=== PATIENT | female | born 1975 | race Caucasian/White ===

== ENCOUNTER 2016-10-20 08:08 | Emergency (ER) | payer OTHER, MEDICARE ==
[~2016-10-20] VITALS: Ht 165.1 cm; Wt 68.0 kg
[~2016-10-20 08:08] MED LIST: DICL75 PO; JUNETAB PO; LISD20CA PO
[2016-10-20 08:17] VITALS: BP 117/91; PULSE 89; RESP 16; TEMP 98.4; O2SAT 96
[2016-10-20] MEDS ORDERED: LISD1CAP PO (08:53)
[2016-10-20] MEDS ORDERED: AMPH1TAB29 PO (08:53)
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
[2016-10-20] MEDS ORDERED: oxyCODONE/ACETAMINOPHEN 5 MG/325 MG TAB PO ONE (10:15)
[2016-10-20] MEDS ORDERED: IBUPROFEN 600 MG TAB PO ONE (10:15)
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
[2016-10-20] MEDS ORDERED: IBUP-232 PO (10:24)
[2016-10-20] MEDS ORDERED: TRAM50TA PO (10:24)
[2016-10-20] MEDS ORDERED: MEDR4PAK PO (10:26)
[2016-10-20 10:31] LABS: BLOOD, URINE SMALL (NEG); GLUCOSE,URINE NEG (NEG); KETONE, URINE NEG (NEG)
[2016-10-20 10:32] LABS: METHOD OF COLLECTION CLEAN CATCH; NITRITE,URINE POS (NEG); URINE COLOR YELLOW (YELLW/STRAW)
[2016-10-20 10:36] LABS: BACTERIA, URINE MANY /hpf; COMMENT (UR) CULTURE INDICATED; CULTURE IF INDICATED CULTURE INDICATED; RBC, URINE 0-3 /hpf (0-3)
[2016-10-20 10:37] LABS: SQUAMOUS EPITHELIAL CELL URINE 0-5 /hpf (0-5)
[2016-10-20] MEDS ORDERED: MACR100C2 PO (10:39)
[2016-10-20] MEDS ORDERED: NITROFURANTOIN MONOHYD MACROCR 100 MG CAP PO ONE (10:45)
[2016-10-20 10:50] VITALS: BP 122/67
== END 2016-10-20 11:04 | disposition home or self-care (01) ==
LOC: PHED 08:08
DX: S16.1XXA Strain of muscle, fascia and tendon at neck level, initial encounter (principal); S43.401A Unspecified sprain of right shoulder joint, initial encounter; N39.0 Urinary tract infection, site not specified; M25.551 Pain in right hip; M25.552 Pain in left hip; B96.29 Other Escherichia coli [E. coli] as the cause of diseases classified elsewhere; F90.9 Attention-deficit hyperactivity disorder, unspecified type; J45.909 Unspecified asthma, uncomplicated; F41.8 Other specified anxiety disorders
CPT/HCPCS: 71250; 72125; 73030; 73502; 81001; 84703; 87077; 87086; 87186

== ENCOUNTER 2017-04-18 05:12 | Emergency (ER) | payer MEDICARE, OTHER ==
[~2017-04-18 05:12] MED LIST changes: +AMPH1TAB29 PO; -DICL75 PO; +IBUP-232 PO; -JUNETAB PO; +LISD1CAP PO; -LISD20CA PO; +MACR100C2 PO; +MEDR4PAK PO; +TRAM50TA PO
[2017-04-18 05:13] VITALS: BP 117/70; PULSE 78; RESP 18; TEMP 97.9; O2SAT 98
[2017-04-18] MEDS ORDERED: ADDE10 PO (05:35)
[2017-04-18] MEDS ORDERED: VYVA30CA5 PO (05:35)
[2017-04-18] MEDS ORDERED: SODIUM CHLOR 0.9% 1000 ML INJ 1,000 ML IV ONE (05:45)
[2017-04-18] MEDS ORDERED: HYDR-3583 PO (05:45)
[2017-04-18] MEDS ORDERED: ONDANSETRON HCL 4 MG/2 ML VIAL IV ONE (05:45)
[2017-04-18] MEDS ORDERED: TOPI1TAB97 PO (05:45)
[2017-04-18] MEDS ORDERED: KETOROLAC TROMETHAMINE 30 MG/ML (IVP) VIAL IV PUSH ONE (05:45)
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
[2017-04-18 06:26] LABS: AUTOMATED NEUTROPHIL # 6.8 TH/MM3 (1.8-7.7); BASOPHIL # 0.1 TH/MM3 (0-0.2); BASOPHIL % 0.7 % (0.0-2.0); EOSINOPHIL # 0.1 TH/MM3 (0-0.4); EOSINOPHIL % 0.9 % (0.0-4.0); HEMATOCRIT 45.6 % (35.0-46.0); HEMO FLAGS DIFF FINAL; LYMPH % 24.2 % (9.0-44.0); LYMPHOCYTE # 2.4 TH/MM3 (1.0-4.8); MEAN CELL VOLUME 85.1 FL (80.0-100.0); MEAN CORPUSCULAR HEMOGLOBIN 28.7 PG (27.0-34.0); MEAN CORPUSCULAR HGB CONC 33.7 % (32.0-36.0); MONO % 6.1 % (0.0-8.0); NEUT % 68.1 % (16.0-70.0); PLATELET COUNT 365 TH/MM3 (150-450); RED BLOOD COUNT 5.36 MIL/MM3 (4.00-5.30); RED CELL DISTRIBUTION WIDTH 16.8 % (11.6-17.2)
[2017-04-18 06:50] LABS: ALKALINE PHOSPHATASE 67 U/L (45-117); TOTAL BILIRUBIN ADULT 0.5 MG/DL (0.2-1.0)
[2017-04-18 07:21] LABS: ALT (GPT) 47 U/L (10-53); ANION GAP 6 MEQ/L (5-15); AST (GOT) 19 U/L (15-37); BICARBONATE 25.3 MEQ/L (21.0-32.0); BLOOD UREA NITROGEN 12 MG/DL (7-18); CHLORIDE 109 MEQ/L (98-107); GLOMERULAR FILTRATION RATE 71 ML/MIN (>89); MAGNESIUM 2.2 MG/DL (1.5-2.5); SODIUM (NA) 140 MEQ/L (136-145)
[2017-04-18 07:22] LABS: ALCOHOL LESS THAN 3 MG/DL (0-5); POTASSIUM 4.9 MEQ/L (3.5-5.1)
[2017-04-18] MEDS ORDERED: ZOFR4TAB3 SL (07:30)
[2017-04-18] MEDS ORDERED: SODIUM CHLORID 0.9% 500 ML INJ 500 ML IV ONE (07:45)
[2017-04-18 07:48] LABS: BACTERIA, URINE MANY /hpf; BLOOD, URINE TRACE (NEG); COMMENT (UR) CULTURE INDICATED; CULTURE IF INDICATED CULTURE INDICATED; GLUCOSE,URINE NEG (NEG); KETONE, URINE NEG (NEG); MUCUS URINE FEW /lpf (OCC); NITRITE,URINE POS (NEG); SQUAMOUS EPITHELIAL CELL URINE 4 /hpf (0-5); TRANSITIONAL EPI CELLS, URINE 1 /hpf; URINE COLOR YELLOW (YELLW/STRAW)
[2017-04-18] MEDS ORDERED: MACR100C2 PO (08:00)
[2017-04-18 08:45] VITALS: BP 101/68; PULSE 67; RESP 18; O2SAT 100
== END 2017-04-18 09:51 | disposition home or self-care (01) ==
LOC: NEPC 05:12
DX: E86.0 Dehydration (principal); F11.23 Opioid dependence with withdrawal; G89.29 Other chronic pain; N39.0 Urinary tract infection, site not specified; B96.20 Unspecified Escherichia coli [E. coli] as the cause of diseases classified elsewhere; Z72.0 Tobacco use
CPT/HCPCS: 80053; 80307; 81001; 83690; 83735; 84703; 85025; 87086; 96361; 96374; 96375; 99284; J1885; J2405; J7030; J7040

== ENCOUNTER 2017-08-28 20:14 | Emergency (ER) | payer OTHER, MEDICARE ==
[~2017-08-28] VITALS: Ht 165.1 cm; Wt 56.8 kg
[~2017-08-28 20:14] MED LIST changes: +ADDE10 PO; -AMPH1TAB29 PO; +HYDR-3583 PO; -IBUP-232 PO; -LISD1CAP PO; +LISD30 PO; -MEDR4PAK PO; +TOPI25TA7 PO; -TRAM50TA PO; +ZOFR4TAB3 SL
[2017-08-28 20:25] VITALS: BP 141/93; PULSE 90; RESP 16; TEMP 98.2; O2SAT 99
[2017-08-28] MEDS ORDERED: ROBA500T PO (20:26)
[2017-08-28] MEDS ORDERED: DICL75TA PO (20:26)
[2017-08-28] MEDS ORDERED: CYCLOBENZAPRINE HCL 10 MG TAB PO ONE (20:30)
[2017-08-28] MEDS ORDERED: NAPROXEN 500 MG TAB PO ONE (20:30)
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
== END 2017-08-28 21:00 | disposition home or self-care (01) ==
LOC: NEPD 20:14
DX: M54.9 Dorsalgia, unspecified (principal); F90.9 Attention-deficit hyperactivity disorder, unspecified type; J45.909 Unspecified asthma, uncomplicated; F31.9 Bipolar disorder, unspecified; F41.9 Anxiety disorder, unspecified; F17.290 Nicotine dependence, other tobacco product, uncomplicated; V43.52XA Car driver injured in collision with other type car in traffic accident, initial encounter; Z79.899 Other long term (current) drug therapy
CPT/HCPCS: 99284

== ENCOUNTER 2017-09-12 15:59 | Emergency (ER) | payer MEDICARE, OTHER ==
[~2017-09-12] VITALS: Ht 160 cm; Wt 57.3 kg
[~2017-09-12 15:59] MED LIST changes: +DICL75TA PO; +ROBA500T PO
[2017-09-12 16:01] VITALS: BP 152/71; PULSE 88; RESP 18; TEMP 97.6; O2SAT 100
[2017-09-12] MEDS ORDERED: LORazepam 2 MG/ML VIAL IM ONE (16:45)
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
[2017-09-12 18:34] VITALS: BP 123/72; PULSE 88; RESP 18; O2SAT 98
[2017-09-12 18:36] LABS: AUTOMATED NEUTROPHIL # 4.2 TH/MM3 (1.8-7.7); BASOPHIL % 0.3 % (0.0-2.0); EOSINOPHIL % 0.2 % (0.0-4.0); HEMATOCRIT 38.7 % (35.0-46.0); HEMOGLOBIN 13.2 GM/DL (11.6-15.3); LYMPH % 23.8 % (9.0-44.0); LYMPHOCYTE # 1.5 TH/MM3 (1.0-4.8); MEAN CELL VOLUME 83.5 FL (80.0-100.0); MEAN CORPUSCULAR HEMOGLOBIN 28.5 PG (27.0-34.0); MEAN CORPUSCULAR HGB CONC 34.2 % (32.0-36.0); MEAN PLATELET VOLUME 5.2 FL (7.0-11.0); MONO % 8.8 % (0.0-8.0); MONOCYTE # 0.5 TH/MM3 (0-0.9); NEUT % 66.9 % (16.0-70.0); PLATELET COUNT 435 TH/MM3 (150-450); RED BLOOD COUNT 4.63 MIL/MM3 (4.00-5.30); RED CELL DISTRIBUTION WIDTH 12.2 % (11.6-17.2); WHITE BLOOD COUNT 6.2 TH/MM3 (4.0-11.0)
[2017-09-12 18:44] LABS: CHLORIDE 105 MEQ/L (98-107); SODIUM (NA) 138 MEQ/L (136-145)
[2017-09-12] MEDS ORDERED: LORazepam 2 MG/ML VIAL IV PUSH ONE (18:45)
[2017-09-12 18:48] LABS: ALBUMIN 3.7 GM/DL (3.4-5.0); CALCIUM 8.7 MG/DL (8.5-10.1)
[2017-09-12 18:49] LABS: BICARBONATE 29.3 MEQ/L (21.0-32.0); BLOOD UREA NITROGEN 9 MG/DL (7-18); GLUCOSE,RANDOM 94 MG/DL (74-106)
[2017-09-12 18:51] LABS: ALT (GPT) 39 U/L (10-53); AST (GOT) 11 U/L (15-37)
[2017-09-12 18:52] LABS: CREATININE 0.64 MG/DL (0.50-1.00); GLOMERULAR FILTRATION RATE 103 ML/MIN (>89)
[2017-09-12 18:53] LABS: TOTAL BILIRUBIN ADULT 0.5 MG/DL (0.2-1.0); TOTAL PROTEIN 7.7 GM/DL (6.4-8.2)
[2017-09-12 18:54] LABS: ALKALINE PHOSPHATASE 77 U/L (45-117)
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
[2017-09-12 21:51] VITALS: BP 113/72
[2017-09-12] MEDS ORDERED: ALPRAZolam 0.5 MG TAB PO ONE (23:15)
[2017-09-13 01:57] VITALS: BP 96/54; PULSE 70; RESP 17; O2SAT 98
[2017-09-13 06:33] VITALS: BP 96/56; PULSE 73; RESP 16; O2SAT 99
--- NOTE | 2017-09-13 12:18 | PD.PSY.CON ---
Provisional Diagnosis Admission Date Cornelius I. Substance induced mood disorder, amphetamines and benzodiazepines use disorder, several reported bipolar and borderline personality disorder Cornelius II. Borderline personality disorder Cornelius III. No medical history History of Present Illness Service Psychiatry Consult Requested By ER Reason for Consult Medication refill Primary Care Physician No Primary Care Physician HPI The patient is a 41-year-old woman, domiciled alone, single, on SSI, with self-reported psychiatric history of bipolar disorder, anxiety, panic attacks, borderline personality disorder, 1 previous psychiatric hospitalizations, no previous suicidal attempts, she is not in any medication at this moment, medical history of chronic neck pain for which she has seen pain management, presents to the ER today because she states that she has been having verbal arguments with her mother, states that her mother had told her to leave the house, and she is very anxious and having an anxiety attack. She states that she has had history of anxiety attacks in the past. She denies any homicidal or suicidal ideation. She states that she just is very upset about everything. In addition, I have asked if she has a safe place to go, feels safe at home. She states that she has her own home. She denies any safety issues at home. Patient was Camacho acted by ER team due to disorganized behavior. Chart was reviewed. On psychiatric evaluation today the patient is calm, cooperative, denies anxiety at this moment. He says that yesterday she had used alcohol, amphetamines "was a little crazy and very anxious". At the moment the patient denies suicidal and homicidal ideation, she denies visual and auditory hallucinations. Patient would like to recommended with psychiatry to restart psychotropics without word useful in the past. She says that she would love to restart Xanax and medications for "my ADHD". She reported that she has been using crystal meth and alcohol occasionally. Review of Systems Constitutional: DENIES: Diaphoretic episodes, Fatigue, Fever, Weight gain, Weight loss, Chills, Dizziness, Change in appetite, Night Sweats Endocrine: DENIES: Abnorml menstrual pattern, Heat/cold intolerance, Polydipsia , Polyuria, Polyphagia Eyes: DENIES: Blurred vision, Diplopia, Eye inflammation, Eye pain, Vision loss , Photosensitivity, Double Vision Ears, nose, mouth, throat: DENIES: Tinnitus, Hearing loss, Vertigo, Nasal discharge, Oral lesions, Throat pain, Hoarseness, Ear Pain, Running Nose, Epistaxis, Sinus Pain, Toothache, Odynophagia Respiratory: DENIES: Apneas, Cough, Snoring, Wheezing, Hemoptysis, Sputum production, Shortness of breath Cardiovascular: DENIES: Chest pain, Palpitations, Syncope, Dyspnea on Exertion , PND, Lower Extremity Edema, Orthopnea, Claudication Gastrointestinal: DENIES: Abdominal pain, Black stools, Bloody stools, Constipation, Diarrhea, Nausea, Vomiting, Difficulty Swallowing, Anorexia Genitourinary: DENIES: Abnormal vaginal bleeding, Dysmenorrhea, Dyspareunia, Sexual dysfunction, Urinary frequency, Urinary incontinence, Urgency, Hematuria , Dysuria, Nocturia, Vaginal discharge Musculoskeletal: DENIES: Joint pain, Muscle aches, Stiffness, Joint Swelling, Back pain, Neck pain Integumentary: DENIES: Abnormal pigmentation, Pruritus, Rash, Nail changes, Breast masses, Breast skin changes, Nipple discharge Hematologic/lymphatic: DENIES: Bruising, Lymphadenopathy Immunologic/allergic: DENIES: Eczema, Urticaria Neurologic: DENIES: Abnormal gait, Headache, Localized weakness, Paresthesias, Seizures, Speech Problems, Tremor, Poor Balance Psychiatric: DENIES: Anxiety, Confusion, Mood changes, Depression, Hallucinations, Agitation, Suicidal Ideation, Homicidal Ideation, Delusions Past Family Social History Coded Allergies: No Known Allergies (Verified Adverse Reaction, Unknown, 09/12/17) Discontinued Reported Medications Hydrocodone-Acetaminophen (Hydrocodone-Acetaminophen) 10-325 mg Tab, 1 TAB PO TID Y for PAIN, #30 TAB 0 Refills 04/18/17 Topiramate (Topiramate) 25 Mg Tab, 25 MG PO BID for Control Seizures, #60 TAB 0 Refills 04/18/17 Lisdexamfetamine (Vyvanse) 30 Mg Cap, 30 MG PO DAILY, #30 CAP 0 Refills 04/18/17 Amphetamine-Dextroamphetamine (Adderall) 10 Mg Tab, 10 MG PO DAILY for Hyperactivity Control, #30 TAB 0 Refills Avoid late evening doses. Space doses at least 4 to 6 hours if more than once/day dosing. 04/18/17 Discontinued Scripts Methocarbamol (Robaxin) 500 Mg Tab, 500 MG PO QID for Muscle Spasm for 7 Days, TAB 0 Refills Prov:Baldo Mo MD 08/28/[address] (Diclofenac Sodium DR) 75 Mg Tabdr, 75 MG PO BID, #20 TAB 0 Refills Prov:Baldo Mo MD 08/28/17 Nitrofurantoin Monohydrate Macrocrystals (Macrobid) 100 Mg Capsule, 100 MG PO BID for Infection, #20 CAP 0 Refills Prov:Elgin Pope MD 04/18/17 Ondansetron Odt (Zofran Odt) 4 Mg Tab, 4 MG SL Q6HR Y for Nausea/Vomiting, #7 TAB 0 Refills Prov:Alanna Savage MD 04/18/17 Family Psych History Mother is bipolar Social History Patient was born and raised in [place], she doesn't Given alone, she is single, no SI, some college education Patient's Strengths (min. 2) Verbal communication Physical Exam Vital Signs Vital Signs Date Time Temp Pulse Resp B/P (MAP) Pulse Ox O2 Delivery O2 Flow Rate FiO2 09/13/17 10:40 09/13/17 06:33 73 16 99 Room Air 09/12/17 16:01 97.6 Lab Results Test 09/12/17 18:30 09/12/17 19:35 White Blood Count 6.2 TH/MM3 Red Blood Count 4.63 MIL/MM3 Hemoglobin 13.2 GM/DL Hematocrit 38.7 % Mean Corpuscular Volume 83.5 FL Mean Corpuscular Hemoglobin 28.5 PG Mean Corpuscular Hemoglobin Concent 34.2 % Red Cell Distribution Width 12.2 % Platelet Count 435 TH/MM3 Mean Platelet Volume 5.2 FL Neutrophils (%) (Auto) 66.9 % Lymphocytes (%) (Auto) 23.8 % Monocytes (%) (Auto) 8.8 % Eosinophils (%) (Auto) 0.2 % Basophils (%) (Auto) 0.3 % Neutrophils # (Auto) 4.2 TH/MM3 Lymphocytes # (Auto) 1.5 TH/MM3 Monocytes # (Auto) 0.5 TH/MM3 Eosinophils # (Auto) 0.0 TH/MM3 Basophils # (Auto) 0.0 TH/MM3 CBC Comment DIFF FINAL Differential Comment Blood Urea Nitrogen 9 MG/DL Creatinine 0.64 MG/DL Random Glucose 94 MG/DL Total Protein 7.7 GM/DL Albumin 3.7 GM/DL Calcium Level 8.7 MG/DL Alkaline Phosphatase 77 U/L Aspartate Amino Transf (AST/SGOT) 11 U/L Alanine Aminotransferase (ALT/SGPT) 39 U/L Total Bilirubin 0.5 MG/DL Sodium Level 138 MEQ/L Potassium Level 4.1 MEQ/L Chloride Level 105 MEQ/L Carbon Dioxide Level 29.3 MEQ/L Anion Gap 4 MEQ/L Estimat Glomerular Filtration Rate 103 ML/MIN Thyroid Stimulating Hormone 3rd Gen 2.740 uIU/ML Ethyl Alcohol Level LESS THAN 3 MG/DL Urine Opiates Screen NEG Urine Barbiturates Screen NEG Urine Amphetamines Screen POS Urine Benzodiazepines Screen NEG Urine Cocaine Screen NEG Urine Cannabinoids Screen NEG Mental Status Examination Appearance: Appropriate Consciousness: Alert Orientation: x4 Motor Activity: Normal gait Speech: Unremarkable Language: Adequate Fund of Knowledge: Adequate Attention and Concentration: Adequate Memory: Unremarkable Mood: Appropriate Affect: Appropriate Thought Process & Associations: Intact Thought Content: Appropriate Hallucination Type: None Delusion Type: None Suicidal Ideation: No Suicidal Plan: No Suicidal Intention: No Homicidal Ideation: No Homicidal Plan: No Homicidal Intention: No Insight: Adequate Judgment: Adequate Assessment & Plan Problem List: (1) Substance induced mood disorder ICD Codes: F19.94 - Other psychoactive substance use, unspecified with psychoactive substance-induced mood disorder Assessment & Plan: At the moment of this evaluation the patient denies depression, anxiety, tam and psychosis. Patient reports using amphetamines and alcohol irregular basis. She self-reports psychiatric history of bipolar disorder borderline personality disorder, ADHD. He has not been in treatment for a long time right now. She does not meet criteria for involuntary psychotic admission at this moment. Camacho act will be lifted Assessment & Plan Estimated LOS: Jordan Hopkins MD Sep 13, 2017 12:18
== END 2017-09-13 10:53 | disposition home or self-care (01) ==
LOC: PHED 15:59 → NEPJ 09-13 10:53
DX: F31.9 Bipolar disorder, unspecified (principal); J34.89 Other specified disorders of nose and nasal sinuses; F90.9 Attention-deficit hyperactivity disorder, unspecified type; F19.94 Other psychoactive substance use, unspecified with psychoactive substance-induced mood disorder; F41.9 Anxiety disorder, unspecified; M54.2 Cervicalgia; G89.29 Other chronic pain; F42.9 Obsessive-compulsive disorder, unspecified; Z91.14 Patient's other noncompliance with medication regimen
CPT/HCPCS: 70450; 70486; 80053; 80307; 84443; 84703; 85025; 96372; 99284; J2060

== ENCOUNTER 2018-02-04 21:46 | Emergency (ER) | payer MEDICARE, OTHER ==
[~2018-02-04] VITALS: Ht 165.1 cm; Wt 55.9 kg
--- NOTE | 2018-02-04 22:17 | PD ---
HPI Chief Complaint: Psychiatric Symptoms Time Seen by Provider: 22:14 Travel History International Travel<30 days: No Contact w/Intl Traveler<30days: No Traveled to known affect area: No History of Present Illness HPI 42-year-old female presents under Camacho act initiated by the [employer] Department. According to her paperwork patient locked herself and her parents house and was destroying the house. She also was reportedly using crack cocaine and has not slept in few days. She also reportedly has a history of bipolar disorder. The patient disputes all of these statements and says that she does not use any drugs, she has no history of bipolar disorder and she did not lock herself or in the house. She does report that her parents have a history of drug use. She has no medical complaints at this time. Symptoms are nonexistent, no aggravating or relieving factors. PFSH Past Medical History ADHD: Yes Asthma: Yes Bipolar Disorder: Yes Anxiety: Yes Depression: Yes Cancer: No Cardiovascular Problems: No Diabetes: No Diminished Hearing: No Endocrine: No Glaucoma: No Genitourinary: No Hepatitis: No Hiatal Hernia: No Hypertension: No Immune Disorder: No Musculoskeletal: No Neurologic: Yes Psychiatric: Yes Reproductive: Yes (OVARIAN CYST) Respiratory: No Immunizations Current: Yes Thyroid Disease: No PNEUMOCCOCAL Vaccine (Year): 2009 : 0 Para: 0 Ovarian Cysts: Yes (LAPROSCOPIC SURGERY 07/2011) Past Surgical History Abdominal Surgery: No Cardiac Surgery: No Ear Surgery: No Endocrine Surgery: No Eye Surgery: No Genitourinary Surgery: No Gynecologic Surgery: Yes ([facility] 07/2011) Neurologic Surgery: No Oral Surgery: Yes Pacemaker: No Thoracic Surgery: Yes (BREAST AUGMENTATION) Other Surgery: Yes (BREAST AUGMENTATION) Social History Alcohol Use: Yes Tobacco Use: Yes (cigars occasionally) Substance Use: Yes Allergies-Medications (Allergen,Severity, Reaction): Coded Allergies: No Known Allergies (Verified Adverse Reaction, Unknown, 09/12/17) Reported Meds & Prescriptions Reported Meds & Active Scripts Active No Active Prescriptions or Reported Medications Review of Systems Except as stated in HPI: all other systems reviewed are Neg Physical Exam Narrative Examined in the presence of a female nurse GENERAL: Well-developed well-nourished female who is agitated on initial examination. SKIN: Warm and dry. HEAD: Atraumatic. Normocephalic. EYES: Pupils equal and round. No scleral icterus. No injection or drainage. ENT: No nasal bleeding or discharge. Mucous membranes pink and moist. NECK: Trachea midline. No JVD. CARDIOVASCULAR: Regular rate and rhythm. No murmur appreciated. RESPIRATORY: No accessory muscle use. Clear to auscultation. Breath sounds equal bilaterally. GASTROINTESTINAL: Abdomen soft, non-tender, nondistended. Hepatic and splenic margins not palpable. MUSCULOSKELETAL: No obvious deformities. No clubbing. No cyanosis. No edema. NEUROLOGICAL: Awake and alert. No obvious cranial nerve deficits. Motor grossly within normal limits. Normal speech. Data Data Last Documented VS Vital Signs Date Time Temp Pulse Resp B/P (MAP) Pulse Ox O2 Delivery O2 Flow Rate FiO2 02/04/18 22:24 98.1 119 16 119/64 (82) 98 Orders Orders Complete Blood Count With Diff (02/04/18 21:51) Comprehensive Metabolic Panel (02/04/18 21:51) Thyroid Stimulating Hormone (02/04/18 21:51) Psych Screen (02/04/18 21:51) Drug Screen, Random Urine (02/04/18 21:51) Alcohol (Ethanol) (02/04/18 21:51) Salicylates (Aspirin) (02/04/18 21:51) Tylenol (Acetaminophen) (02/04/18 21:51) Ed Urine Pregnancytest Poc (02/04/18 21:52) Electrocardiogram (02/04/18 ) Lactic Acid (02/04/18 23:12) Sodium Chlor 0.9% 1000 Ml Inj (Ns 1000 M (02/04/18 23:12) Lorazepam Inj (Ativan Inj) (02/05/18 01:00) Diphenhydramine Inj (Benadryl Inj) (02/05/18 01:00) ^ Sitter (02/05/18 00:53) Labs Laboratory Tests Test 02/04/18 22:06 02/04/18 22:50 White Blood Count 9.5 TH/MM3 Red Blood Count 5.25 MIL/MM3 Hemoglobin 14.9 GM/DL Hematocrit 45.3 % Mean Corpuscular Volume 86.3 FL Mean Corpuscular Hemoglobin 28.4 PG Mean Corpuscular Hemoglobin Concent 32.9 % Red Cell Distribution Width 14.0 % Platelet Count 340 TH/MM3 Mean Platelet Volume 6.1 FL Neutrophils (%) (Auto) 84.1 % Lymphocytes (%) (Auto) 12.1 % Monocytes (%) (Auto) 3.1 % Eosinophils (%) (Auto) 0.0 % Basophils (%) (Auto) 0.7 % Neutrophils # (Auto) 8.0 TH/MM3 Lymphocytes # (Auto) 1.1 TH/MM3 Monocytes # (Auto) 0.3 TH/MM3 Eosinophils # (Auto) 0.0 TH/MM3 Basophils # (Auto) 0.1 TH/MM3 CBC Comment DIFF FINAL Differential Comment Blood Urea Nitrogen 8 MG/DL Creatinine 1.03 MG/DL Random Glucose 98 MG/DL Total Protein 7.5 GM/DL Albumin 4.5 GM/DL Calcium Level 8.7 MG/DL Alkaline Phosphatase 65 U/L Aspartate Amino Transf (AST/SGOT) 6 U/L Alanine Aminotransferase (ALT/SGPT) 32 U/L Total Bilirubin 0.3 MG/DL Sodium Level 143 MEQ/L Potassium Level 3.5 MEQ/L Chloride Level 110 MEQ/L Carbon Dioxide Level 16.9 MEQ/L Anion Gap 16 MEQ/L Estimat Glomerular Filtration Rate 59 ML/MIN Thyroid Stimulating Hormone 3rd Gen 2.960 uIU/ML Salicylates Level 3.7 MG/DL Acetaminophen Level LESS THAN 2.0 MCG/ML Ethyl Alcohol Level 122 MG/DL Urine Opiates Screen NEG Urine Barbiturates Screen NEG Urine Amphetamines Screen POS Urine Benzodiazepines Screen NEG Urine Cocaine Screen NEG Urine Cannabinoids Screen NEG MDM Medical Decision Making Medical Screen Exam Complete: Yes Emergency Medical Condition: Yes Medical Record Reviewed: Yes Differential Diagnosis Substance-induced mood disorder, acute psychosis, adjustment reaction, bipolar disorder, schizophrenia Narrative Course Mental health screening discussed with the patient. Psychiatric screen ordered. Lab work has been reviewed, notable for alcohol level 122, drug screen positive for amphetamines, anion gap is 16, likely secondary to alcohol use, lactic acid was ordered but the patient is refusing. IV fluids was ordered but the patient is refusing it. She became increasingly combative during her hospital stay requiring chemical sedation. She is medically cleared for psychiatric disposition. Diagnosis Primary Impression: Medical clearance for psychiatric admission Scripts No Active Prescriptions or Reported Meds Sinan Casillas Feb 04, 2018 22:17
[2018-02-04 22:21] VITALS: BP 119/64; PULSE 145; RESP 20; TEMP 98.1; O2SAT 99
[2018-02-04 22:24] VITALS: BP 119/64; PULSE 119; RESP 16; TEMP 98.1; O2SAT 98
[2018-02-04 22:29] LABS: BASOPHIL # 0.1 TH/MM3 (0-0.2); BASOPHIL % 0.7 % (0.0-2.0); HEMATOCRIT 45.3 % (35.0-46.0); HEMOGLOBIN 14.9 GM/DL (11.6-15.3); LYMPH % 12.1 % (9.0-44.0); LYMPHOCYTE # 1.1 TH/MM3 (1.0-4.8); MEAN CELL VOLUME 86.3 FL (80.0-100.0); MEAN CORPUSCULAR HEMOGLOBIN 28.4 PG (27.0-34.0); MEAN CORPUSCULAR HGB CONC 32.9 % (32.0-36.0); MEAN PLATELET VOLUME 6.1 FL (7.0-11.0); MONO % 3.1 % (0.0-8.0); MONOCYTE # 0.3 TH/MM3 (0-0.9); NEUT % 84.1 % (16.0-70.0); PLATELET COUNT 340 TH/MM3 (150-450); RED BLOOD COUNT 5.25 MIL/MM3 (4.00-5.30); WHITE BLOOD COUNT 9.5 TH/MM3 (4.0-11.0)
[2018-02-04 22:45] LABS: ALBUMIN 4.5 GM/DL (3.4-5.0); AST (GOT) 6 U/L (15-37); BICARBONATE 16.9 MEQ/L (21.0-32.0); BLOOD UREA NITROGEN 8 MG/DL (7-18); CALCIUM 8.7 MG/DL (8.5-10.1); CHLORIDE 110 MEQ/L (98-107); CREATININE 1.03 MG/DL (0.50-1.00); GLOMERULAR FILTRATION RATE 59 ML/MIN (>89); GLUCOSE,RANDOM 98 MG/DL (74-106); SODIUM (NA) 143 MEQ/L (136-145)
[2018-02-04 22:47] LABS: ALT (GPT) 32 U/L (10-53)
[2018-02-04 22:56] LABS: ALKALINE PHOSPHATASE 65 U/L (45-117); TOTAL BILIRUBIN ADULT 0.3 MG/DL (0.2-1.0); TOTAL PROTEIN 7.5 GM/DL (6.4-8.2)
[2018-02-04 23:03] LABS: ACETAMINOPHEN LESS THAN 2.0 MCG/ML (10.0-30.0)
[2018-02-04] MEDS ORDERED: SODIUM CHLOR 0.9% 1000 ML INJ 1,000 ML IV SCH (23:12)
[2018-02-05] MEDS ORDERED: LORazepam 2 MG/ML VIAL IM ONE (01:00)
[2018-02-05] MEDS ORDERED: diphenhydrAMINE HCL 50 MG/ML VIAL IM ONE (01:00)
[2018-02-05] MEDS ORDERED: LISD30 PO (10:51)
[2018-02-05] MEDS ORDERED: VENTAER INH (10:51)
[2018-02-05] MEDS ORDERED: ALPR.25 PO (10:51)
--- NOTE | 2018-02-05 11:06 | PD ---
HPI Chief Complaint: Psychiatric Symptoms Travel History International Travel<30 days: No Contact w/Intl Traveler<30days: No Traveled to known affect area: No PFSH Past Medical History Hx Anticoagulant Therapy: No ADHD: Yes Asthma: Yes Bipolar Disorder: Yes Anxiety: Yes Depression: Yes Cancer: No Cardiovascular Problems: No Chemotherapy: No Cerebrovascular Accident: No Diabetes: No Diminished Hearing: No Endocrine: No Glaucoma: No Genitourinary: No Hepatitis: No Hiatal Hernia: No Hypertension: No Immune Disorder: No Musculoskeletal: No Neurologic: Yes Psychiatric: Yes Reproductive: Yes (OVARIAN CYST) Respiratory: No Immunizations Current: Yes Thyroid Disease: No Tetanus Vaccination: > 5 Years Influenza Vaccination: No PNEUMOCCOCAL Vaccine (Year): 2009 ?: Not LMP: "yesterday it ended" : 0 Para: 0 Ovarian Cysts: Yes (LAPROSCOPIC SURGERY 07/2011) Past Surgical History Abdominal Surgery: No Cardiac Surgery: No Ear Surgery: No Endocrine Surgery: No Eye Surgery: No Genitourinary Surgery: No Gynecologic Surgery: Yes (LAP 07/2011) Hysterectomy: No Neurologic Surgery: No Oral Surgery: Yes Pacemaker: No Thoracic Surgery: Yes (BREAST AUGMENTATION) Other Surgery: Yes (BREAST AUGMENTATION) Social History Alcohol Use: Yes Tobacco Use: Yes (cigars occasionally) Substance Use: Yes Allergies-Medications (Allergen,Severity, Reaction): Coded Allergies: No Known Allergies (Verified Adverse Reaction, Unknown, 09/12/17) Reported Meds & Prescriptions Reported Meds & Active Scripts Active Reported Xanax (Alprazolam) 0.25 Mg Tab 0.25 Mg PO DAILY Vyvanse (Lisdexamfetamine Dimesylate) 30 Mg Cap 30 Mg PO DAILY Ventolin Hfa 18 GM Inh (Albuterol Sulfate) 90 Mcg/Act Aer 2 Puff INH Q6H PRN Data Data Last Documented VS Vital Signs Date Time Temp Pulse Resp B/P (MAP) Pulse Ox O2 Delivery O2 Flow Rate FiO2 02/04/18 22:24 98.1 119 16 119/64 (82) 98 Orders Orders Complete Blood Count With Diff (02/04/18 21:51) Comprehensive Metabolic Panel (02/04/18 21:51) Thyroid Stimulating Hormone (02/04/18 21:51) Psych Screen (02/04/18 21:51) Drug Screen, Random Urine (02/04/18 21:51) Alcohol (Ethanol) (02/04/18 21:51) Salicylates (Aspirin) (02/04/18 21:51) Tylenol (Acetaminophen) (02/04/18 21:51) Ed Urine Pregnancytest Poc (02/04/18 21:52) Lactic Acid (02/04/18 23:12) Sodium Chlor 0.9% 1000 Ml Inj (Ns 1000 M (02/04/18 23:12) Lorazepam Inj (Ativan Inj) (02/05/18 01:00) Diphenhydramine Inj (Benadryl Inj) (02/05/18 01:00) ^ Sitter (02/05/18 00:53) Diet Regular Basic (02/05/18 Breakfast) Ed Discharge Order (02/05/18 11:09) Labs Laboratory Tests Test 02/04/18 22:06 02/04/18 22:50 White Blood Count 9.5 TH/MM3 Red Blood Count 5.25 MIL/MM3 Hemoglobin 14.9 GM/DL Hematocrit 45.3 % Mean Corpuscular Volume 86.3 FL Mean Corpuscular Hemoglobin 28.4 PG Mean Corpuscular Hemoglobin Concent 32.9 % Red Cell Distribution Width 14.0 % Platelet Count 340 TH/MM3 Mean Platelet Volume 6.1 FL Neutrophils (%) (Auto) 84.1 % Lymphocytes (%) (Auto) 12.1 % Monocytes (%) (Auto) 3.1 % Eosinophils (%) (Auto) 0.0 % Basophils (%) (Auto) 0.7 % Neutrophils # (Auto) 8.0 TH/MM3 Lymphocytes # (Auto) 1.1 TH/MM3 Monocytes # (Auto) 0.3 TH/MM3 Eosinophils # (Auto) 0.0 TH/MM3 Basophils # (Auto) 0.1 TH/MM3 CBC Comment DIFF FINAL Differential Comment Blood Urea Nitrogen 8 MG/DL Creatinine 1.03 MG/DL Random Glucose 98 MG/DL Total Protein 7.5 GM/DL Albumin 4.5 GM/DL Calcium Level 8.7 MG/DL Alkaline Phosphatase 65 U/L Aspartate Amino Transf (AST/SGOT) 6 U/L Alanine Aminotransferase (ALT/SGPT) 32 U/L Total Bilirubin 0.3 MG/DL Sodium Level 143 MEQ/L Potassium Level 3.5 MEQ/L Chloride Level 110 MEQ/L Carbon Dioxide Level 16.9 MEQ/L Anion Gap 16 MEQ/L Estimat Glomerular Filtration Rate 59 ML/MIN Thyroid Stimulating Hormone 3rd Gen 2.960 uIU/ML Salicylates Level 3.7 MG/DL Acetaminophen Level LESS THAN 2.0 MCG/ML Ethyl Alcohol Level 122 MG/DL Urine Opiates Screen NEG Urine Barbiturates Screen NEG Urine Amphetamines Screen POS Urine Benzodiazepines Screen NEG Urine Cocaine Screen NEG Urine Cannabinoids Screen NEG MDM Diagnosis Primary Impression: Medical clearance for psychiatric admission Maria A Tyler Feb 05, 2018 11:06
--- NOTE | 2018-02-05 11:08 | PD ---
Physical Exam Date Seen by Provider: Feb 05, 2018 Time Seen by Provider: 11:06 Data Data Last Documented VS Vital Signs Date Time Temp Pulse Resp B/P (MAP) Pulse Ox O2 Delivery O2 Flow Rate FiO2 02/04/18 22:24 98.1 119 16 119/64 (82) 98 Orders Orders Complete Blood Count With Diff (02/04/18 21:51) Comprehensive Metabolic Panel (02/04/18 21:51) Thyroid Stimulating Hormone (02/04/18 21:51) Psych Screen (02/04/18 21:51) Drug Screen, Random Urine (02/04/18 21:51) Alcohol (Ethanol) (02/04/18 21:51) Salicylates (Aspirin) (02/04/18 21:51) Tylenol (Acetaminophen) (02/04/18 21:51) Ed Urine Pregnancytest Poc (02/04/18 21:52) Lactic Acid (02/04/18 23:12) Sodium Chlor 0.9% 1000 Ml Inj (Ns 1000 M (02/04/18 23:12) Lorazepam Inj (Ativan Inj) (02/05/18 01:00) Diphenhydramine Inj (Benadryl Inj) (02/05/18 01:00) ^ Sitter (02/05/18 00:53) Diet Regular Basic (02/05/18 Breakfast) Labs Laboratory Tests Test 02/04/18 22:06 02/04/18 22:50 White Blood Count 9.5 TH/MM3 Red Blood Count 5.25 MIL/MM3 Hemoglobin 14.9 GM/DL Hematocrit 45.3 % Mean Corpuscular Volume 86.3 FL Mean Corpuscular Hemoglobin 28.4 PG Mean Corpuscular Hemoglobin Concent 32.9 % Red Cell Distribution Width 14.0 % Platelet Count 340 TH/MM3 Mean Platelet Volume 6.1 FL Neutrophils (%) (Auto) 84.1 % Lymphocytes (%) (Auto) 12.1 % Monocytes (%) (Auto) 3.1 % Eosinophils (%) (Auto) 0.0 % Basophils (%) (Auto) 0.7 % Neutrophils # (Auto) 8.0 TH/MM3 Lymphocytes # (Auto) 1.1 TH/MM3 Monocytes # (Auto) 0.3 TH/MM3 Eosinophils # (Auto) 0.0 TH/MM3 Basophils # (Auto) 0.1 TH/MM3 CBC Comment DIFF FINAL Differential Comment Blood Urea Nitrogen 8 MG/DL Creatinine 1.03 MG/DL Random Glucose 98 MG/DL Total Protein 7.5 GM/DL Albumin 4.5 GM/DL Calcium Level 8.7 MG/DL Alkaline Phosphatase 65 U/L Aspartate Amino Transf (AST/SGOT) 6 U/L Alanine Aminotransferase (ALT/SGPT) 32 U/L Total Bilirubin 0.3 MG/DL Sodium Level 143 MEQ/L Potassium Level 3.5 MEQ/L Chloride Level 110 MEQ/L Carbon Dioxide Level 16.9 MEQ/L Anion Gap 16 MEQ/L Estimat Glomerular Filtration Rate 59 ML/MIN Thyroid Stimulating Hormone 3rd Gen 2.960 uIU/ML Salicylates Level 3.7 MG/DL Acetaminophen Level LESS THAN 2.0 MCG/ML Ethyl Alcohol Level 122 MG/DL Urine Opiates Screen NEG Urine Barbiturates Screen NEG Urine Amphetamines Screen POS Urine Benzodiazepines Screen NEG Urine Cocaine Screen NEG Urine Cannabinoids Screen NEG MDM Supervised Visit with KAVIN: No Narrative Course 42-year-old female presents the ED under Janice act for psychiatric evaluation. She was initially evaluated by Sinan Casillas PA-C and medically cleared. She was then evaluated by Dr. Hicks, psychiatrist. Camacho act was lifted. Patient's diagnosed with substance-induced psychosis. Plan is for the patient to follow-up with outpatient drug treatment resources. Patient stable and discharged home. Diagnosis Primary Impression: Medical clearance for psychiatric admission Additional Impression: Substance-induced psychotic disorder Referrals: [facility] Additional Instruction: Follow-up with [facility] for outpatient since abuse treatment. Return to the ED for any urgent or emergent medical condition. Disposition: 01 DISCHARGE HOME Condition: Stable Maria A Tyler Feb 05, 2018 11:08
== END 2018-02-05 11:13 | disposition home or self-care (01) ==
LOC: NEPD 21:46
DX: F15.159 Other stimulant abuse with stimulant-induced psychotic disorder, unspecified (principal); F10.129 Alcohol abuse with intoxication, unspecified; F90.9 Attention-deficit hyperactivity disorder, unspecified type; J45.909 Unspecified asthma, uncomplicated; F41.8 Other specified anxiety disorders; Y90.6 Blood alcohol level of 120-199 mg/100 ml
CPT/HCPCS: 80053; 80307; 84443; 84703; 85025; 96372; 99284; J1200; J2060